=== PATIENT | female | born 1965 | race Caucasian/White ===

== ENCOUNTER → 2017-12-01 | Outpatient (CLI) | payer MEDICARE, MEDICAID ==
--- NOTE | 2017-12-01 19:49 | XCELERA REPORT ---
[address] [address] Transthoracic Echocardiogram Report Name: MATTEO RAZO Age: 52 yrs Gender: Female : 1965 Patient Status: Outpatient Patient Location: Study Date: 12/01/2017 10:01 AM Height: 62 in Weight: 170 lb BSA: 1.8 m2 Procedure: A complete two-dimensional transthoracic echocardiogram was performed (2D, M-mode, spectral and color flow Doppler). The study was technically adequate with some images being suboptimal in quality. Reason For Study: MURMUR Ordering Physician: MIKHAIL LOZANO Performed By: [facility] Interpretation Summary The left ventricular ejection fraction is normal. Doppler measurements suggest normal left ventricular diastolic function There is normal left ventricular wall thickness. The left ventricle is grossly normal size. No regional wall motion abnormalities noted. The right ventricular systolic function is normal. The right atrium is normal. The left atrial size is normal. There is a mild amount of mitral regurgitation There is no mitral valve stenosis. There is no aortic valve stenosis No aortic regurgitation is present. There is a mild amount of tricuspid regurgitation Right ventricular systolic pressure is at the upper limits of normal The aortic root is not well visualized but is probably normal size. The inferior vena cava appeared normal and decreased > 50% with respiration (RAP 5-10 mmHg) There is no pericardial effusion. MMode/2D Measurements & Calculations RVDd: 2.5 cm LVIDd: 4.8 cm FS: 35.4 % Ao root diam: 2.6 cm IVSd: 0.81 cm LVIDs: 3.1 cm EDV(Teich): 108.8 ml LVPWd: 0.80 cmESV(Teich): 38.4 ml Ao root area: 5.5 cm2 EF(Teich): 64.7 % LA dimension: 3.5 cm LVOT diam: 1.8 cm LVOT area: 2.5 cm2 Doppler Measurements & Calculations MV E max leslie: MV P1/2t max leslie: Ao V2 max: LV V1 max P.5 cm/sec 107.0 cm/sec 164.2 cm/sec 4.4 mmHg MV A max leslie: MV P1/2t: 67.9 msec Ao max PG: LV V1 max: 82.7 cm/sec MVA(P1/2t): 3.2 cm2 10.8 mmHg 104.4 cm/sec MV E/A: 1.3 MV dec slope: MARCELA(V,D): 1.6 cm2 461.2 cm/sec2 PA V2 max: TR max leslie: 67.9 cm/sec 237.7 cm/sec PA max PG: TR max P.6 mmHg 1.8 mmHg Left Ventricle The left ventricle is grossly normal size. There is normal left ventricular wall thickness. The left ventricular ejection fraction is normal. Doppler measurements suggest normal left ventricular diastolic function. No regional wall motion abnormalities noted. Right Ventricle The right ventricle is normal in size, thickness and function. There is normal right ventricular wall thickness. The right ventricular systolic function is normal. Atria The right atrium is normal. The left atrial size is normal. Interarterial septum not well visualized and not well dopplered. Cannot comment on ASD/PFO presence. Mitral Valve The mitral valve is grossly normal. There is no mitral valve stenosis. There is a mild amount of mitral regurgitation. Aortic Valve The aortic valve is grossly normal. There is no aortic valve stenosis. No aortic regurgitation is present. Tricuspid Valve The tricuspid valve is not well visualized, but is grossly normal. There is no tricuspid stenosis. There is a mild amount of tricuspid regurgitation. Right ventricular systolic pressure is at the upper limits of normal. Pulmonic Valve The pulmonic valve is not well visualized. Great Vessels The aortic root is not well visualized but is probably normal size. The inferior vena cava appeared normal and decreased > 50% with respiration (RAP 5-10 mmHg). Effusions There is no pericardial effusion. : MIKHAIL LOZANO > [facility]
== END ==
LOC: SP 09:37
DX: R01.1 Cardiac murmur, unspecified (principal)
CPT/HCPCS: 93306